=== PATIENT | male | born 1950 | race Caucasian/White ===

== ENCOUNTER 2017-06-24 19:04 | Inpatient (IN) | payer MEDICAID, MEDICARE, OTHER ==
[~2017-06-24] VITALS: Ht 188 cm; Wt 100.0 kg
[~2017-06-24 19:04] MED LIST: ADV50250 INH; ALBU8.5H8 IH; ATOR20TA66 PO; CARV3.12 PO; FURO-150 PO; LEVO175T2 PO; LOSA50TA3 PO; PARO12.52 PO; POTA10TA36 PO; VIT1CAPS4 PO
[2017-06-24 19:28] LABS: BASOPHILS # (AUTO) 0.1 X10'3 (0-0.2); BASOPHILS % (AUTO) 0.7 % (0-1); EOSINOPHILS # (AUTO) 0.4 X10'3 (0-0.9); EOSINOPHILS % (AUTO) 5.6 % (0-6); HEMATOCRIT 41.2 % (42.0-52.0); LYMPHOCYTES # (AUTO) 1.5 X10'3 (1.1-4.8); LYMPHOCYTES % (AUTO) 18.8 % (21-51); MEAN CORPUSCULAR HEMOGLOBIN 30.5 PG (27.0-31.0); MEAN CORPUSCULAR VOLUME 89.8 FL (78-98); MEAN PLATELET VOLUME 9.1 FL (7.4-10.4); MONOCYTES # (AUTO) 0.7 X10'3 (0-0.9); MONOCYTES % (AUTO) 9.1 % (2-12); NEUTROPHILS # (AUTO) 5.1 X10'3 (1.8-7.7); NEUTROPHILS % (AUTO) 65.8 % (42-75); PLATELET COUNT 205 X10'3 (140-440); RED BLOOD COUNT 4.59 X10'6 (4.70-6.10); RED CELL DISTRIBUTION WIDTH 14.6 % (11.5-14.5); WHITE BLOOD COUNT 7.8 X10'3 (4.5-11.0)
[2017-06-24 19:39] LABS: PARTIAL THROMBOPLASTIN TIME 28 SECONDS (22-32); PROTHROMBIN TIME 10.3 SECONDS (9.0-12.0)
[2017-06-24 19:54] LABS: ALANINE AMINOTRANSFERASE 17 U/L (12-78); ALBUMIN 3.3 G/DL (3.4-5.0); ALBUMIN/GLOBULIN RATIO 0.9 (1.1-1.5); ALKALINE PHOSPHATASE 116 IU/L (46-116); ANION GAP 7 (8-16); ASPARTATE AMINO TRANSFERASE 14 U/L (10-37); BILIRUBIN,TOTAL 1.2 MG/DL (0.1-1.0); BLOOD UREA NITROGEN 11 MG/DL (7-18); BUN/CREATININE RATIO 7.3 (5.4-32.0); CALCIUM 9.2 MG/DL (8.5-10.1); CHLORIDE 104 MMOL/L (99-107); CREATINE KINASE 30 U/L (39-308); GLUCOSE 96 MG/DL (70-104); MAGNESIUM 1.8 MG/DL (1.5-2.4); PHOSPHORUS 3.4 MG/DL (2.3-4.5); POTASSIUM 3.7 MMOL/L (3.5-5.1); SODIUM 141 MMOL/L (135-145); TOTAL CARBON DIOXIDE 30.3 MMOL/L (24-32); TOTAL PROTEIN 7.1 G/DL (6.4-8.2); eGFR 47 ML/MIN
[2017-06-24] MEDS ORDERED: LEVO175T2 PO (20:33)
[2017-06-24] MEDS ORDERED: COLC0.6C3 PO (20:33)
[2017-06-24] MEDS ORDERED: ALLO100T PO (20:33)
[2017-06-24] MEDS ORDERED: SYN0.088T PO (20:33)
[2017-06-24] MEDS ORDERED: CARV-50 PO (20:33)
[2017-06-24] MEDS ORDERED: FAMO20TA8 PO (20:36)
[2017-06-24] MEDS ORDERED: ASPI-1265 PO (20:36)
[2017-06-24] MEDS ORDERED: KRIL1CAP PO (20:36)
[2017-06-24] MEDS ORDERED: CHOL200012 (20:36)
[2017-06-24] MEDS ORDERED: morphine 4 MG/ML inj SYRINge IV ONE (20:55)
[2017-06-24] MEDS ORDERED: morphine 5 MG/ML injection IV ONE ×2 (20:55)
[2017-06-24] MEDS ORDERED: temazepam 15mg capsule PO PRN (21:00)
[2017-06-24] MEDS ORDERED: magnesium 2GM in 50ml NS 50 ML IV ONE (21:05)
[2017-06-24] MEDS ORDERED: normal saline 1000ML IV soln IVB ONE (21:25)
[2017-06-24] MEDS ORDERED: morphine 2 MG/ML inj. syringe IV PRN ×2 (23:15)
[2017-06-24] MEDS ORDERED: potassium Cl 40MEQ/NS 500ml 500 ML IV PRN ×2 (23:15)
[2017-06-24] MEDS ORDERED: mag hydrox/Alum hydrox/simeth 30ml oral suspension PO PRN (23:15)
[2017-06-24] MEDS ORDERED: magnesium 4gm in 100ml NS 100 ML IV PRN (23:15)
[2017-06-24] MEDS ORDERED: potassium Cl 20 mEq SR tablet PO PRN ×2 (23:15)
[2017-06-24] MEDS ORDERED: magnesium hydroxide 30ml (MOM) UD suspension PO PRN (23:15)
[2017-06-24] MEDS ORDERED: magnesium Cl slow-release 64mg tablet PO PRN (23:15)
[2017-06-24] MEDS ORDERED: albuterol 2.5 MG/3 ML nebule NEB PRN (23:15)
[2017-06-24] MEDS ORDERED: acetaminophen 325mg tablet PO PRN (23:15)
[2017-06-24] MEDS ORDERED: ipratropium/albuterol 3ml nebule NEB PRN (23:15)
[2017-06-24] MEDS ORDERED: magnesium 2GM in 50ml NS 50 ML IV PRN (23:15)
[2017-06-24] MEDS ORDERED: ondansetron/PF 4mg/2ml inj IV PRN (23:15)
[2017-06-24 23:33] LABS: CLARITY,URINE CLEAR (Clear); COLOR,URINE AMBER (Yellow); GLUCOSE, URINE NEGATIVE (Neg); KETONES,URINE TRACE mg/dl (Neg); LEUKOCYTE ESTERASE ,URINE NEGATIVE (Neg); NITRITES, URINE NEGATIVE (Neg); OCCULT BLOOD,URINE TRACE-INTACT (Neg); PROTEIN,URINE TRACE mg/dl (Neg); UROBILINOGEN,URINE >=8.0 E.U/dL (0.2-1.0)
[2017-06-24 23:36] LABS: UA COLLECTION TYPE CLN CATCH MIDSTREAM
[2017-06-24 23:41] LABS: BACTERIA,URINE NONE SEEN /HPF (Neg); MUCUS STRANDS MANY /LPF (Neg); SQUAMOUS EPITHELIAL CELL,UR FEW /LPF (FEW); WBC,URINE 0-4 /HPF (0-4)
[2017-06-24 23:49] LABS: URINE AMPHETAMINE SCREEN POSITIVE (Neg); URINE BARBITUATE SCREEN NEGATIVE (Neg); URINE BENZODIAZEPINES SCREEN NEGATIVE (Neg); URINE CANNABINOID SCREEN NEGATIVE (Neg); URINE COCAINE SCREEN NEGATIVE (Neg); URINE METHADONE SCREEN NEGATIVE (Neg); URINE OPIATE SCREEN POSITIVE (Neg); URINE PHENCYCLIDINE SCREEN NEGATIVE (Neg)
[2017-06-24] MEDS ORDERED: LIDOCAINE 1% ONE (23:54)
[2017-06-25] VITALS (16 sets, daily range): BP systolic 117–144; BP diastolic 49–84
[2017-06-25] MEDS ORDERED: fentaNYL/PF 50MCG/1 ML 2ML syringe ONE (00:20)
[2017-06-25] MEDS ORDERED: midazolam 2 mg/2 ml injection ONE ×3 (00:21→01:39)
[2017-06-25] MEDS ORDERED: sevoflurane 250ml liquid IH ONE (00:33)
[2017-06-25] MEDS ORDERED: clindamycin phosphate 150mg/ml inj. ONE (00:40)
[2017-06-25] MEDS ORDERED: ringers solution, lacted 1,000 ML IV SCH (02:03)
[2017-06-25] MEDS ORDERED: proCHLORperazine 10 MG/2 ml inj IV PRN (02:05)
[2017-06-25] MEDS ORDERED: morphine 2 MG/ML inj. syringe IV PRN ×2 (02:05)
[2017-06-25] MEDS ORDERED: meperidine/PF 25mg/ml syringe IV PRN ×3 (02:05)
[2017-06-25] MEDS ORDERED: ondansetron/PF 4mg/2ml inj IV PRN (02:05)
[2017-06-25] MEDS: normal saline 1000ml 1,000 ML IV SCH ×2 (04:37→12:34)
[2017-06-25 04:59] LABS: BASOPHILS % (AUTO) 0.7 % (0-1); EOSINOPHILS # (AUTO) 0.4 X10'3 (0-0.9); EOSINOPHILS % (AUTO) 5.9 % (0-6); HEMATOCRIT 36.4 % (42.0-52.0); HEMOGLOBIN 12.4 g/dl (14.0-17.9); LYMPHOCYTES # (AUTO) 1.3 X10'3 (1.1-4.8); LYMPHOCYTES % (AUTO) 20.3 % (21-51); MEAN CORPUSCULAR HEMOGLOBIN 30.4 PG (27.0-31.0); MEAN CORPUSCULAR VOLUME 89.5 FL (78-98); MEAN PLATELET VOLUME 9.3 FL (7.4-10.4); MONOCYTES # (AUTO) 0.7 X10'3 (0-0.9); MONOCYTES % (AUTO) 11.1 % (2-12); NEUTROPHILS # (AUTO) 4.1 X10'3 (1.8-7.7); PLATELET COUNT 172 X10'3 (140-440); RED BLOOD COUNT 4.07 X10'6 (4.70-6.10); RED CELL DISTRIBUTION WIDTH 14.6 % (11.5-14.5); WHITE BLOOD COUNT 6.6 X10'3 (4.5-11.0)
[2017-06-25 05:20] LABS: ALANINE AMINOTRANSFERASE 17 U/L (12-78); ALBUMIN 2.8 G/DL (3.4-5.0); ALBUMIN/GLOBULIN RATIO 0.8 (1.1-1.5); ALKALINE PHOSPHATASE 103 IU/L (46-116); ANION GAP 7 (8-16); ASPARTATE AMINO TRANSFERASE 13 U/L (10-37); BILIRUBIN,TOTAL 1.2 MG/DL (0.1-1.0); BLOOD UREA NITROGEN 11 MG/DL (7-18); BUN/CREATININE RATIO 7.9 (5.4-32.0); CALCIUM 8.3 MG/DL (8.5-10.1); CHLORIDE 105 MMOL/L (99-107); CHOL/HDL RATIO 4.9 (0.00-4.99); CHOLESTEROL 127 MG/DL (0-200); GLUCOSE 82 MG/DL (70-104); HDL CHOLESTEROL 26 MG/DL (35-60); LDL CHOLESTEROL 81 MG/DL (50-100); POTASSIUM 3.9 MMOL/L (3.5-5.1); SODIUM 141 MMOL/L (135-145); TOTAL CARBON DIOXIDE 28.6 MMOL/L (24-32); TOTAL PROTEIN 6.2 G/DL (6.4-8.2); TRIGLYCERIDES 126 MG/DL (20-135); eGFR 51 ML/MIN
[2017-06-25] MEDS ORDERED: aspirin 81mg tab.chew PO SCH (08:00)
[2017-06-25] MEDS ORDERED: potassium chloride 10mEq ER tablet PO SCH (08:00)
[2017-06-25] MEDS ORDERED: famotidine 20mg tablet PO SCH (08:00)
[2017-06-25] MEDS ORDERED: losartan 50mg tablet PO SCH (08:00)
[2017-06-25] MEDS ORDERED: K and/or MAG REPLACEMENT MC SCH (08:00)
[2017-06-25] MEDS ORDERED: allopurinol 100mg tablet PO SCH (08:00)
[2017-06-25] MEDS ORDERED: furosemide 20MG tablet PO SCH (08:00)
[2017-06-25] MEDS: HYDROcodone/acetaminophen 5mg/325mg tablet PO PRN ×2 (10:21→15:59)
[2017-06-25] MEDS ORDERED: HYDR-569 PO (11:02)
[2017-06-25] MEDS ORDERED: LEVO125T8 PO (11:02)
[2017-06-25] MEDS ORDERED: atorvastatin 20mg tablet PO SCH (21:00)
== END 2017-06-25 17:36 | disposition home or self-care (01) | DRG 243 ==
LOC: ER 19:04 → ED HOLD 23:19 → PCU 3S 06-25 02:55
PROVIDERS: ADMIT Internal Medicine; ATTEND Internal Medicine
PROC: 02H63JZ Insertion of Pacemaker Lead into Right Atrium, Percutaneous Approach (ICD-10-PCS; 2017-06-25)
PROC: 02HK3JZ Insertion of Pacemaker Lead into Right Ventricle, Percutaneous Approach (ICD-10-PCS; 2017-06-25)
PROC: 0JH606Z Insertion of Pacemaker, Dual Chamber into Chest Subcutaneous Tissue and Fascia, Open Approach (ICD-10-PCS; principal; 2017-06-25 00:33)
DX: I44.2 Atrioventricular block, complete (principal); I42.8 Other cardiomyopathies; I13.0 Hypertensive heart and chronic kidney disease with heart failure and stage 1 through stage 4 chronic kidney disease, or unspecified chronic kidney disease; I50.22 Chronic systolic (congestive) heart failure; R07.89 Other chest pain; E03.9 Hypothyroidism, unspecified; E78.5 Hyperlipidemia, unspecified; N18.3 Chronic kidney disease, stage 3 (moderate); F41.9 Anxiety disorder, unspecified; J44.9 Chronic obstructive pulmonary disease, unspecified; M10.9 Gout, unspecified; N28.9 Disorder of kidney and ureter, unspecified; E05.90 Thyrotoxicosis, unspecified without thyrotoxic crisis or storm; F15.10 Other stimulant abuse, uncomplicated; F12.90 Cannabis use, unspecified, uncomplicated; F17.210 Nicotine dependence, cigarettes, uncomplicated; Z88.0 Allergy status to penicillin
CPT/HCPCS: 36415; 71045; 76000; 76001; 80053; 80061; 80305; 81001; 82550; 82553; 83735; 83874; 83880; 84100; 84443; 84484; 85025; 85610; 85730; 87070; 93005; 93306; 94640; 94760; 96361; 96365; 96375; 99291; A4565; A4615; A6257; A7000; C1785; J2175; J2250; J3010; J3475; J3490; J7030; J7120

== ENCOUNTER 2017-07-02 04:38 | Emergency (ER) | payer MEDICARE, OTHER ==
[~2017-07-02] VITALS: Ht 188 cm; Wt 97.7 kg
[~2017-07-02 04:38] MED LIST changes: -ADV50250 INH; -ALBU8.5H8 IH; +ALLO100T PO; +ASPI-1265 PO; -CARV3.12 PO; +CHOL200012; +FAMO20TA8 PO; +HYDR-569 PO; +LEVO125T8 PO; -LEVO175T2 PO
[2017-07-02] MEDS ORDERED: metoclopramide 5 mg/ml inj IM ONE ×2 (05:00→05:25)
[2017-07-02] MEDS ORDERED: diphenhydrAMINE 50 mg/ml inj IM ONE (05:00)
[2017-07-02 05:50] VITALS: BP 145/101
== END 2017-07-02 05:53 | disposition home or self-care (01) ==
LOC: ER 04:39
DX: R51 Headache (principal); I11.0 Hypertensive heart disease with heart failure; I50.9 Heart failure, unspecified; E05.90 Thyrotoxicosis, unspecified without thyrotoxic crisis or storm; F12.90 Cannabis use, unspecified, uncomplicated; F15.90 Other stimulant use, unspecified, uncomplicated; Z95.0 Presence of cardiac pacemaker; Z88.0 Allergy status to penicillin; Z98.890 Other specified postprocedural states; Z79.82 Long term (current) use of aspirin
CPT/HCPCS: 70450; 96372; 99284; J1200; J2765

== ENCOUNTER 2017-10-08 11:36 | Emergency (ER) | payer MEDICARE, OTHER ==
[~2017-10-08] VITALS: Ht 6206.4 cm; Wt 96.0 kg
[2017-10-08] MEDS ORDERED: methylPREDNISolone sod succ 125mg/2ml vial IV ONE (11:45)
[2017-10-08] MEDS ORDERED: CARV-50 PO (11:53)
[2017-10-08] MEDS ORDERED: COLC0.6T69 PO (11:53)
[2017-10-08 12:16] LABS: BASOPHILS % (AUTO) 0.6 % (0-1); EOSINOPHILS # (AUTO) 0.5 X10'3 (0-0.9); EOSINOPHILS % (AUTO) 10.2 % (0-6); HEMATOCRIT 38.8 % (42.0-52.0); HEMOGLOBIN 13.1 g/dl (14.0-17.9); LYMPHOCYTES # (AUTO) 1.3 X10'3 (1.1-4.8); LYMPHOCYTES % (AUTO) 27.9 % (21-51); MEAN CORPUSCULAR HEMOGLOBIN 29.8 PG (27.0-31.0); MEAN CORPUSCULAR HGB CONC 33.8 % (33.0-36.5); MEAN PLATELET VOLUME 8.6 FL (7.4-10.4); MONOCYTES # (AUTO) 0.5 X10'3 (0-0.9); MONOCYTES % (AUTO) 9.8 % (2-12); NEUTROPHILS # (AUTO) 2.4 X10'3 (1.8-7.7); NEUTROPHILS % (AUTO) 51.5 % (42-75); PLATELET COUNT 200 X10'3 (140-440); RED BLOOD COUNT 4.41 X10'6 (4.70-6.10); RED CELL DISTRIBUTION WIDTH 14.1 % (11.5-14.5); WHITE BLOOD COUNT 4.7 X10'3 (4.5-11.0)
[2017-10-08 12:35] LABS: ALANINE AMINOTRANSFERASE 24 U/L (12-78); ALBUMIN 3.1 G/DL (3.4-5.0); ALBUMIN/GLOBULIN RATIO 0.8 (1.1-1.5); ALKALINE PHOSPHATASE 115 IU/L (46-116); ANION GAP 4 (8-16); ASPARTATE AMINO TRANSFERASE 22 U/L (10-37); BILIRUBIN,TOTAL 0.5 MG/DL (0.1-1.0); BLOOD UREA NITROGEN 7 MG/DL (7-18); BUN/CREATININE RATIO 5.5 (5.4-32.0); CALCIUM 8.2 MG/DL (8.5-10.1); CHLORIDE 107 MMOL/L (99-107); CREATININE 1.27 MG/DL (0.60-1.10); GLUCOSE 112 MG/DL (70-104); POTASSIUM 3.2 MMOL/L (3.5-5.1); SODIUM 143 MMOL/L (135-145); TOTAL CARBON DIOXIDE 31.8 MMOL/L (24-32); TOTAL PROTEIN 6.9 G/DL (6.4-8.2); eGFR 57 ML/MIN
[2017-10-08] MEDS ORDERED: ipratropium/albuterol 3ml nebule NEB ONE (12:55)
[2017-10-08] MEDS ORDERED: albuterol 2.5 MG/3 ML nebule NEB ONE (12:55)
[2017-10-08 13:27] VITALS: BP 134/80
[2017-10-08] MEDS ORDERED: CIPR-230 PO (13:54)
[2017-10-08] MEDS ORDERED: PRED20TA PO (13:54)
== END 2017-10-08 14:15 | disposition home or self-care (01) ==
LOC: ER 11:36
DX: J44.1 Chronic obstructive pulmonary disease with (acute) exacerbation (principal); I11.0 Hypertensive heart disease with heart failure; I50.9 Heart failure, unspecified; E05.90 Thyrotoxicosis, unspecified without thyrotoxic crisis or storm; F17.200 Nicotine dependence, unspecified, uncomplicated; F12.10 Cannabis abuse, uncomplicated; F15.10 Other stimulant abuse, uncomplicated; Z95.0 Presence of cardiac pacemaker; Z98.890 Other specified postprocedural states; Z88.0 Allergy status to penicillin; Z79.82 Long term (current) use of aspirin; Z79.899 Other long term (current) drug therapy
CPT/HCPCS: 36415; 71045; 80053; 83880; 84484; 85025; 93005; 94640; 94760; 96374; 99285; J2930

== ENCOUNTER 2020-12-01 12:01 | Emergency (ER) | payer MEDICARE, OTHER ==
[~2020-12-01] VITALS: Ht 188 cm; Wt 97.7 kg
[~2020-12-01 12:01] MED LIST changes: +CARV-50 PO; +COLC0.6T72 PO; +HYDR-4383 PO; -HYDR-569 PO; -PARO12.52 PO; +PARO12.53 PO
[2020-12-01] MEDS ORDERED: normal saline 1000ml 1,000 ML IV ONE (13:10)
[2020-12-01 13:25] LABS: BASOPHILS # (AUTO) 0.1 X10'3 (0-0.2); BASOPHILS % (AUTO) 1.2 % (0-1); EOSINOPHILS # (AUTO) 0.3 X10'3 (0-0.9); EOSINOPHILS % (AUTO) 4.3 % (0-6); HEMATOCRIT 45.8 % (42.0-52.0); HEMOGLOBIN 15.3 g/dl (14.0-17.9); LYMPHOCYTES % (AUTO) 15.7 % (21-51); MEAN CORPUSCULAR HEMOGLOBIN 30.7 PG (27.0-31.0); MEAN CORPUSCULAR HGB CONC 33.5 g/dL (33.0-36.5); MEAN CORPUSCULAR VOLUME 91.5 FL (78-98); MEAN PLATELET VOLUME 8.4 FL (7.4-10.4); MONOCYTES # (AUTO) 0.6 X10'3 (0-0.9); MONOCYTES % (AUTO) 8.9 % (2-12); NEUTROPHILS # (AUTO) 4.5 X10'3 (1.8-7.7); NEUTROPHILS % (AUTO) 69.9 % (42-75); PLATELET COUNT 300 X10'3 (140-440); RED CELL DISTRIBUTION WIDTH 15.3 % (11.5-14.5); WHITE BLOOD COUNT 6.4 X10'3 (4.5-11.0)
[2020-12-01 13:38] LABS: ALANINE AMINOTRANSFERASE 15 U/L (12-78); ALBUMIN 3.4 G/DL (3.4-5.0); ALBUMIN/GLOBULIN RATIO 0.8 (1.1-1.5); ALKALINE PHOSPHATASE 101 IU/L (46-116); ANION GAP 9 (8-16); ASPARTATE AMINO TRANSFERASE 18 U/L (10-37); BILIRUBIN,TOTAL 1.9 MG/DL (0.1-1.0); BLOOD UREA NITROGEN 8 MG/DL (7-18); BUN/CREATININE RATIO 7.3 (5.4-32.0); CALCIUM 8.8 MG/DL (8.5-10.1); CHLORIDE 105 MMOL/L (99-107); GLUCOSE 114 MG/DL (70-104); POTASSIUM 4.1 MMOL/L (3.5-5.1); SODIUM 141 MMOL/L (135-145); TOTAL PROTEIN 7.5 G/DL (6.4-8.2); eGFR 66 ML/MIN
--- NOTE | 2020-12-01 14:05 | NUR ---
ines [id number] [phone] will call her and give her updates
[2020-12-01 15:16] LABS: CLARITY,URINE CLEAR (Clear); COLOR,URINE STRAW (Yellow); GLUCOSE, URINE NEGATIVE (Neg); KETONES,URINE NEGATIVE (Neg); LEUKOCYTE ESTERASE ,URINE NEGATIVE (Neg); NITRITES, URINE NEGATIVE (Neg); OCCULT BLOOD,URINE NEGATIVE (Neg); PH,URINE 7.5 (4.8-8.0); PROTEIN,URINE NEGATIVE (Neg); UA COLLECTION TYPE CLN CATCH MIDSTREAM
[2020-12-01 15:18] VITALS: BP 166/100
[2020-12-01 15:22] LABS: URINE AMPHETAMINE SCREEN NEGATIVE (Neg); URINE BARBITUATE SCREEN NEGATIVE (Neg); URINE BENZODIAZEPINES SCREEN NEGATIVE (Neg); URINE CANNABINOID SCREEN NEGATIVE (Neg); URINE COCAINE SCREEN NEGATIVE (Neg); URINE METHADONE SCREEN NEGATIVE (Neg); URINE OPIATE SCREEN NEGATIVE (Neg); URINE PHENCYCLIDINE SCREEN NEGATIVE (Neg)
== END 2020-12-01 15:20 | disposition home or self-care (01) ==
LOC: ER 12:02
DX: R53.1 Weakness (principal); I50.9 Heart failure, unspecified; I11.0 Hypertensive heart disease with heart failure; R53.83 Other fatigue; R06.02 Shortness of breath; J44.9 Chronic obstructive pulmonary disease, unspecified; M10.9 Gout, unspecified; E05.90 Thyrotoxicosis, unspecified without thyrotoxic crisis or storm; F12.90 Cannabis use, unspecified, uncomplicated; F15.90 Other stimulant use, unspecified, uncomplicated; Z95.0 Presence of cardiac pacemaker; Z98.890 Other specified postprocedural states; Z88.0 Allergy status to penicillin; Z79.82 Long term (current) use of aspirin; Z79.899 Other long term (current) drug therapy
CPT/HCPCS: 36415; 71045; 80053; 80305; 81003; 83880; 85025; 93005; 96360; 96361; 99285; J7030; 84484

== ENCOUNTER 2024-03-05 09:06 | Outpatient (CLI) | payer BC, MEDICARE ==
[~2024-03-05] VITALS: Ht 188 cm; Wt 90.3 kg
[~2024-03-05 09:06] MED LIST changes: +ALBU17AE26 IH; -ASPI-1265 PO; +ASPI-611 PO; -ATOR20TA66 PO; +ATOR40TA72 PO; -CARV-50 PO; +CARV6.2553 PO; -CHOL200012; +CHOL200012 PO; -COLC0.6T72 PO; -FAMO20TA8 PO; +FERR325T32 PO; -FURO-150 PO; +FURO20TA4 PO; -HYDR-4383 PO; +LOSA-416 PO; -LOSA50TA3 PO; +PANT40TA54 PO; +PARO10TA4 PO; -PARO12.53 PO; -POTA10TA36 PO
[2024-03-05] MEDS ORDERED: aminophylline 250mg/10ml inj. IV ONE (10:00)
[2024-03-05 10:02] VITALS: BP 138/76; PULSE 101; RESP 14; O2SAT 98
[2024-03-05] MEDS: regadenoson 0.4mg/5ml syringe IV ONE (11:12)
[2024-03-05 11:24] VITALS: BP 120/70; PULSE 100; RESP 16; O2SAT 98
[2024-03-05 11:25] VITALS: BP 131/73; PULSE 102; RESP 16; O2SAT 99
[2024-03-05 11:26] VITALS: BP 135/67; PULSE 100; RESP 16; O2SAT 99
[2024-03-05 11:27] VITALS: BP 133/67; PULSE 100; RESP 14; O2SAT 98
[2024-03-05 11:28] VITALS: BP 134/72; PULSE 101; RESP 14; O2SAT 99
[2024-04-12] MEDS ORDERED: CEFU250T95 PO (07:24)
== END 2024-03-05 23:59 | disposition home or self-care (01) ==
LOC: NM 09:06
PROVIDERS: ATTEND Internal Medicine Cardiovascular Disease
DX: Z01.818 Encounter for other preprocedural examination (principal); I50.22 Chronic systolic (congestive) heart failure; I25.10 Atherosclerotic heart disease of native coronary artery without angina pectoris
CPT/HCPCS: 78452; 93017; A9500; J2785; J0280

== ENCOUNTER 2024-04-08 23:59 | Emergency (ER) | payer BC, MEDICARE ==
[~2024-04-08] VITALS: Ht 177.8 cm; Wt 90.9 kg
[2024-04-09] MEDS: diatr meglu/diatrizoate 30ml oral sol.-(3 dose) bottle PO SCH (00:19)
[2024-04-09 00:36] LABS: BASOPHILS # (AUTO) 0.1 X10'3 (0-0.2); BASOPHILS % (AUTO) 0.4 % (0-1); EOSINOPHILS # (AUTO) 0.1 X10'3 (0-0.9); EOSINOPHILS % (AUTO) 1.1 % (0-6); HEMATOCRIT 33.1 % (42.0-52.0); HEMOGLOBIN 10.3 g/dl (14.0-17.9); LYMPHOCYTES % (AUTO) 7.3 % (21-51); MEAN CORPUSCULAR HEMOGLOBIN 23.9 PG (27.0-31.0); MEAN PLATELET VOLUME 8.4 FL (7.4-10.4); MONOCYTES # (AUTO) 1.2 X10'3 (0-0.9); MONOCYTES % (AUTO) 8.6 % (2-12); NEUTROPHILS # (AUTO) 11.2 X10'3 (1.8-7.7); NEUTROPHILS % (AUTO) 82.6 % (42-75); PLATELET COUNT 221 X10'3 (140-440); RED CELL DISTRIBUTION WIDTH 19.8 % (11.5-14.5); WHITE BLOOD COUNT 13.6 X10'3 (4.5-11.0)
[2024-04-09 00:48] LABS: ALANINE AMINOTRANSFERASE 43 U/L (12-78); ALBUMIN 3.1 G/DL (3.4-5.0); ALBUMIN/GLOBULIN RATIO 0.7 (1.1-1.5); ALKALINE PHOSPHATASE 139 IU/L (46-116); ANION GAP 5 (8-16); ASPARTATE AMINO TRANSFERASE 40 U/L (10-37); BILIRUBIN,TOTAL 2.1 MG/DL (0.1-1.0); BLOOD UREA NITROGEN 13 MG/DL (7-18); BUN/CREATININE RATIO 8.2 (10.0-20.0); CALCIUM 8.8 MG/DL (8.5-10.1); CHLORIDE 101 MMOL/L (99-107); CREATININE 1.59 MG/DL (0.60-1.10); GLUCOSE 99 MG/DL (70-104); POTASSIUM 3.9 MMOL/L (3.5-5.1); SODIUM 136 MMOL/L (135-145); TOTAL CARBON DIOXIDE 29.6 MMOL/L (24-32); TOTAL PROTEIN 7.4 G/DL (6.4-8.2); eCRCL 43 ML/MIN; eGFR 43 ML/MIN
[2024-04-09 00:56] LABS: ANISOCYTOSIS 2+; ELLIPTOCYTES 1+; MICROCYTOSIS 1+; PLATELET ESTIMATE NORMAL
[2024-04-09] MEDS ORDERED: iohexol 300mg/ml 100ml inj. ONE (01:17)
[2024-04-09 04:22] LABS: BILIRUBIN,URINE NEGATIVE (Neg); CLARITY,URINE SLIGHTLY CLOUDY (Clear); COLOR,URINE YELLOW (Yellow); GLUCOSE, URINE NEGATIVE (Neg); KETONES,URINE NEGATIVE (Neg); LEUKOCYTE ESTERASE ,URINE TRACE (Neg); NITRITES, URINE POSITIVE (Neg); OCCULT BLOOD,URINE TRACE-INTACT (Neg); PH,URINE 7.5 (4.8-8.0); PROTEIN,URINE NEGATIVE (Neg); UROBILINOGEN,URINE 0.2 E.U/dL (0.2-1.0)
[2024-04-09 04:26] LABS: UA COLLECTION TYPE OTHER
[2024-04-09 04:27] LABS: SQUAMOUS EPITHELIAL CELL,UR NONE SEEN /LPF (FEW)
[2024-04-09 04:28] LABS: BACTERIA,URINE 3+ /HPF (Neg); TRANSITIONAL EPI CELLS,URINE FEW /HPF
[2024-04-09 04:29] LABS: MUCUS STRANDS NONE SEEN /LPF (Neg); RBC,URINE 0-2 /HPF (0-2)
[2024-04-09 04:42] LABS: URINE AMPHETAMINE SCREEN POSITIVE (Neg); URINE BARBITUATE SCREEN NEGATIVE (Neg); URINE BENZODIAZEPINES SCREEN NEGATIVE (Neg); URINE CANNABINOID SCREEN NEGATIVE (Neg); URINE COCAINE SCREEN NEGATIVE (Neg); URINE METHADONE SCREEN NEGATIVE (Neg); URINE OPIATE SCREEN NEGATIVE (Neg); URINE PHENCYCLIDINE SCREEN NEGATIVE (Neg)
[2024-04-09 04:52] VITALS: BP 132/80; PULSE 95; RESP 18; TEMP 98; O2SAT 96
== END 2024-04-09 04:56 | disposition home or self-care (01) ==
LOC: ER 23:59
DX: K40.90 Unilateral inguinal hernia, without obstruction or gangrene, not specified as recurrent (principal); I11.0 Hypertensive heart disease with heart failure; I50.9 Heart failure, unspecified; J44.9 Chronic obstructive pulmonary disease, unspecified; E05.90 Thyrotoxicosis, unspecified without thyrotoxic crisis or storm; F12.90 Cannabis use, unspecified, uncomplicated; F15.90 Other stimulant use, unspecified, uncomplicated; Z95.0 Presence of cardiac pacemaker; Z98.890 Other specified postprocedural states; Z88.0 Allergy status to penicillin; Z79.82 Long term (current) use of aspirin; Z79.899 Other long term (current) drug therapy
CPT/HCPCS: 36415; 74177; 80053; 80305; 81001; 83605; 85008; 85025; 87088; 87186; 99285; Q9963; Q9967; 87077

== ENCOUNTER 2024-06-12 18:24 | Inpatient (IN) | payer BC, MEDICARE ==
[~2024-06-12] VITALS: Ht 175.3 cm; Wt 81.8 kg
[2024-06-12 19:38] LABS: BASOPHILS # (AUTO) 0.1 X10'3 (0-0.2); EOSINOPHILS # (AUTO) 0.2 X10'3 (0-0.9); EOSINOPHILS % (AUTO) 4.1 % (0-6); HEMATOCRIT 32.4 % (42.0-52.0); HEMOGLOBIN 10.6 g/dl (14.0-17.9); LYMPHOCYTES # (AUTO) 1.1 X10'3 (1.1-4.8); LYMPHOCYTES % (AUTO) 19.5 % (21-51); MEAN CORPUSCULAR HEMOGLOBIN 24.9 PG (27.0-31.0); MEAN CORPUSCULAR HGB CONC 32.7 g/dL (33.0-36.5); MEAN CORPUSCULAR VOLUME 76.2 FL (78-98); MEAN PLATELET VOLUME 8.6 FL (7.4-10.4); MONOCYTES # (AUTO) 0.7 X10'3 (0-0.9); MONOCYTES % (AUTO) 12.4 % (2-12); NEUTROPHILS # (AUTO) 3.4 X10'3 (1.8-7.7); PLATELET COUNT 214 X10'3 (140-440); RED BLOOD COUNT 4.25 X10'6 (4.70-6.10); RED CELL DISTRIBUTION WIDTH 17.8 % (11.5-14.5); WHITE BLOOD COUNT 5.4 X10'3 (4.5-11.0)
[2024-06-12 19:55] LABS: ALANINE AMINOTRANSFERASE 20 U/L (12-78); ALBUMIN/GLOBULIN RATIO 0.9 (1.1-1.5); ALKALINE PHOSPHATASE 114 IU/L (46-116); ANION GAP 7 (8-16); ASPARTATE AMINO TRANSFERASE 17 U/L (10-37); BILIRUBIN,TOTAL 0.8 MG/DL (0.1-1.0); BLOOD UREA NITROGEN 10 MG/DL (7-18); BUN/CREATININE RATIO 8.5 (10.0-20.0); CALCIUM 8.3 MG/DL (8.5-10.1); CHLORIDE 108 MMOL/L (99-107); CREATININE 1.17 MG/DL (0.60-1.10); GLUCOSE 92 MG/DL (70-104); POTASSIUM 4.1 MMOL/L (3.5-5.1); PRO BRAIN NATRIURETIC PEPTIDE 1657 PG/ML (0-125); SODIUM 141 MMOL/L (135-145); TOTAL CARBON DIOXIDE 26.5 MMOL/L (24-32); TOTAL PROTEIN 6.5 G/DL (6.4-8.2); eCRCL 56 ML/MIN; eGFR 61 ML/MIN
[2024-06-12] MEDS ORDERED: magnesium Cl slow-release 64mg tablet PO PRN (21:40)
[2024-06-12] MEDS ORDERED: magnesium sulf-water 2g/50mL 50 ML IV PRN (21:40)
[2024-06-12] MEDS ORDERED: magnesium sulf-water 4G/100mL 100 ML IV PRN (21:40)
[2024-06-12] MEDS ORDERED: acetaminophen 325mg tablet PO PRN (21:40)
[2024-06-12] MEDS ORDERED: HYDROcodone/acetaminophen 5mg/325mg tablet PO PRN (21:40)
[2024-06-12] MEDS ORDERED: potassium Cl 20 mEq SR tablet PO PRN ×2 (21:40)
[2024-06-12] MEDS ORDERED: dextrose 50%-water 50ml dispensing syringe IV PRN (21:40)
[2024-06-12] MEDS ORDERED: morphine 2 MG/ML inj. syringe IV PRN (21:40)
[2024-06-12] MEDS ORDERED: ondansetron/PF 4mg/2ml inj IV PRN (21:40)
[2024-06-12] MEDS ORDERED: magnesium hydroxide 30ml (MOM) UD suspension PO PRN (21:40)
[2024-06-12] MEDS ORDERED: potassium Cl 40MEQ/1/2NS 520ml 520 ML IV PRN (21:40)
[2024-06-12] MEDS ORDERED: mag hydrox/Alum hydrox/simeth 30ml oral suspension PO PRN (21:40)
[2024-06-12] MEDS: aspirin 325mg tablet PO ONE (22:11)
[2024-06-13] VITALS (18 sets, daily range): BP systolic 97–135; BP diastolic 51–73; PULSE 61–94; RESP 16–20; TEMP 97.6–98.2; O2SAT 67–98
[2024-06-13] MEDS: PERFLUTREN PROTEIN-A MICROSPHR (Optison) 0.22 MG/ML 3ML VIAL IV ONE (00:35)
[2024-06-13] MEDS: furosemide 40mg/4ml inj IV ONE (00:40)
[2024-06-13 01:10] LABS: THYROID STIMULATING HORMONE 0.82 ulU/ml (0.34-4.50)
[2024-06-13] MEDS ORDERED: albuterol 2.5 MG/3 ML nebule NEB PRN ×2 (01:35→03:40)
[2024-06-13 01:58] LABS: BILIRUBIN,URINE NEGATIVE (Neg); CLARITY,URINE CLEAR (Clear); COLOR,URINE YELLOW (Yellow); GLUCOSE, URINE NEGATIVE (Neg); KETONES,URINE NEGATIVE (Neg); LEUKOCYTE ESTERASE ,URINE NEGATIVE (Neg); NITRITES, URINE NEGATIVE (Neg); OCCULT BLOOD,URINE NEGATIVE (Neg); PROTEIN,URINE NEGATIVE (Neg); UROBILINOGEN,URINE 0.2 E.U/dL (0.2-1.0)
[2024-06-13] MEDS: ipratropium/albuterol 3ml nebule NEB SCH (02:00)
[2024-06-13 02:19] LABS: UA COLLECTION TYPE CLN CATCH MIDSTREAM
[2024-06-13 02:22] LABS: OSMOLALITY UA 567 MOSM/K (50-1400)
[2024-06-13 02:52] LABS: SODIUM,URINE RANDOM 109 MEQ/L; URINE AMPHETAMINE SCREEN NEGATIVE (Neg); URINE BARBITUATE SCREEN NEGATIVE (Neg); URINE BENZODIAZEPINES SCREEN NEGATIVE (Neg); URINE CANNABINOID SCREEN NEGATIVE (Neg); URINE COCAINE SCREEN NEGATIVE (Neg); URINE METHADONE SCREEN NEGATIVE (Neg); URINE OPIATE SCREEN NEGATIVE (Neg); URINE PHENCYCLIDINE SCREEN NEGATIVE (Neg)
[2024-06-13 03:21] LABS: BASOPHILS # (AUTO) 0.1 X10'3 (0-0.2); BASOPHILS % (AUTO) 1.2 % (0-1); EOSINOPHILS # (AUTO) 0.2 X10'3 (0-0.9); EOSINOPHILS % (AUTO) 5.4 % (0-6); HEMOGLOBIN 9.8 g/dl (14.0-17.9); LYMPHOCYTES # (AUTO) 1.2 X10'3 (1.1-4.8); LYMPHOCYTES % (AUTO) 27.4 % (21-51); MEAN CORPUSCULAR HEMOGLOBIN 25.1 PG (27.0-31.0); MEAN CORPUSCULAR HGB CONC 32.7 g/dL (33.0-36.5); MEAN CORPUSCULAR VOLUME 76.8 FL (78-98); MEAN PLATELET VOLUME 8.7 FL (7.4-10.4); MONOCYTES # (AUTO) 0.6 X10'3 (0-0.9); MONOCYTES % (AUTO) 14.2 % (2-12); NEUTROPHILS # (AUTO) 2.3 X10'3 (1.8-7.7); NEUTROPHILS % (AUTO) 51.8 % (42-75); PLATELET COUNT 176 X10'3 (140-440); RED BLOOD COUNT 3.91 X10'6 (4.70-6.10); RED CELL DISTRIBUTION WIDTH 17.6 % (11.5-14.5); WHITE BLOOD COUNT 4.5 X10'3 (4.5-11.0)
[2024-06-13 03:33] LABS: ALBUMIN 2.7 G/DL (3.4-5.0); ANION GAP 4 (8-16); BLOOD UREA NITROGEN 10 MG/DL (7-18); BUN/CREATININE RATIO 8.5 (10.0-20.0); CALCIUM 8.5 MG/DL (8.5-10.1); CHLORIDE 109 MMOL/L (99-107); CREATININE 1.17 MG/DL (0.60-1.10); GLUCOSE 96 MG/DL (70-104); MAGNESIUM 1.8 MG/DL (1.5-2.4); SODIUM 142 MMOL/L (135-145); TOTAL CARBON DIOXIDE 29.2 MMOL/L (24-32); eCRCL 56 ML/MIN; eGFR 61 ML/MIN
[2024-06-13] MEDS: docusate sod 100mg capsule PO SCH (08:00)
[2024-06-13] MEDS: K and/or MAG REPLACEMENT MC SCH (08:00)
[2024-06-13] MEDS: folic acid 1mg/0.2ml inj IV SCH (08:33)
[2024-06-13] MEDS: furosemide 20 MG/2 ML vial IV SCH (08:33)
[2024-06-13] MEDS: thiamine 100mg/ml 2ml inj. IV SCH (08:33)
[2024-06-13] MEDS: PARoxetine 10mg tablet PO SCH (08:34)
[2024-06-13] MEDS: allopurinol 100mg tablet PO SCH (08:34)
[2024-06-13] MEDS: aspirin 81mg, enteric-coated 1 TAB TABLET.DR PO SCH (08:34)
[2024-06-13] MEDS: carvedilol 6.25mg tablet PO SCH (08:34)
[2024-06-13 19:18] LABS: HEMOGLOBIN A1C 5.9 % (4.5-6.2)
[2024-06-13 19:45] LABS: CHOL/HDL RATIO 4.8 (0.00-4.99); CHOLESTEROL 159 MG/DL (0-200); FERRITIN 24 NG/ML (26-388); HDL CHOLESTEROL 33 MG/DL (35-60); LDL CHOLESTEROL 108 MG/DL (50-100); TRIGLYCERIDES 71 MG/DL (20-135)
[2024-06-13 19:53] LABS: % IRON SATURATION 5 % (11-46); IRON 17 UG/DL (53-167); TOTAL IRON BINDING CAPACITY 371 UG/DL (259-388)
[2024-06-13] MEDS: atorvastatin 20mg tablet PO SCH (19:57)
[2024-06-14 02:00] VITALS: BP 97/59; PULSE 87; RESP 21; TEMP 97.4; O2SAT 95
[2024-06-14 06:00] VITALS: BP 119/66; PULSE 65; RESP 20; TEMP 97.4; O2SAT 94
[2024-06-14 07:00] LABS: ALBUMIN 2.8 G/DL (3.4-5.0); ANION GAP 7 (8-16); BLOOD UREA NITROGEN 14 MG/DL (7-18); BUN/CREATININE RATIO 9.7 (10.0-20.0); CALCIUM 8.6 MG/DL (8.5-10.1); CHLORIDE 103 MMOL/L (99-107); CREATININE 1.44 MG/DL (0.60-1.10); GLUCOSE 95 MG/DL (70-104); MAGNESIUM 1.7 MG/DL (1.5-2.4); POTASSIUM 3.9 MMOL/L (3.5-5.1); SODIUM 139 MMOL/L (135-145); eCRCL 46 ML/MIN; eGFR 48 ML/MIN
[2024-06-14 07:36] LABS: EOSINOPHILS # (AUTO) 0.2 X10'3 (0-0.9); HEMATOCRIT 31.6 % (42.0-52.0); MONOCYTES # (AUTO) 0.6 X10'3 (0-0.9); NEUTROPHILS # (AUTO) 2.6 X10'3 (1.8-7.7); WHITE BLOOD COUNT 4.5 X10'3 (4.5-11.0)
[2024-06-14 07:38] LABS: HEMOGLOBIN 10.2 g/dl (14.0-17.9); LYMPHOCYTES % (AUTO) 22.9 % (21-51); MEAN CORPUSCULAR HEMOGLOBIN 24.9 PG (27.0-31.0); MEAN CORPUSCULAR HGB CONC 32.4 g/dL (33.0-36.5); MEAN CORPUSCULAR VOLUME 76.7 FL (78-98); PLATELET COUNT 208 X10'3 (140-440); RED BLOOD COUNT 4.11 X10'6 (4.70-6.10); RED CELL DISTRIBUTION WIDTH 17.5 % (11.5-14.5)
[2024-06-14 07:39] LABS: EOSINOPHILS % (AUTO) 5.1 % (0-6)
[2024-06-14 07:58] LABS: ANISOCYTOSIS 1+; HYPOCHROMASIA 1+; PLATELET ESTIMATE NORMAL; TOTAL CELLS COUNTED 100
[2024-06-14 07:59] LABS: ELLIPTOCYTES 1+; MICROCYTOSIS 1+; SPHEROCYTES 1+
[2024-06-14 08:00] VITALS: RESP 20; O2SAT 94
[2024-06-14 08:01] LABS: GIANT PLATELET FEW
[2024-06-14] MEDS ORDERED: iron sucrose complex injection 100 MG in normal saline 100ml IV soln 95 ML IV SCH (08:05)
[2024-06-14] MEDS: furosemide 20MG tablet PO SCH (08:05)
[2024-06-14] MEDS ORDERED: iron sucrose complex injection 100 MG in normal saline 100ml IV soln 100 ML IV SCH (08:16)
[2024-06-14 08:28] VITALS: PULSE 84; RESP 16; O2SAT 96
[2024-06-14 08:35] VITALS: PULSE 78; RESP 18
[2024-06-14] MEDS: iron sucrose complex injection 100 MG in normal saline 100ml IV soln 100 ML IV SCH (09:44)
[2024-06-14 11:30] VITALS: BP 103/60; PULSE 81; RESP 18; TEMP 98.3; O2SAT 98
[2024-06-14] MEDS ORDERED: ATOR20TA66 PO (13:11)
[2024-06-14] MEDS ORDERED: atorvastatin 20mg tablet PO SCH (21:00)
[2024-06-15] MEDS ORDERED: ALBU18HF2 IH (18:31)
[2024-06-17] MEDS ORDERED: folic acid 1mg tablet PO SCH (08:00)
[2024-06-17] MEDS ORDERED: thiamine 100mg tablet PO SCH (08:00)
== END 2024-06-14 14:25 | disposition home or self-care (01) | DRG 64 ==
LOC: ER 18:25 → ED HOLD 21:50 → PCU 3S 06-13 17:13 → ORTHO 4S 06-14 12:12
PROVIDERS: ADMIT Internal Medicine Critical Care Medicine; ATTEND Family Medicine
DX: I63.9 Cerebral infarction, unspecified (principal); G93.41 Metabolic encephalopathy; N17.0 Acute kidney failure with tubular necrosis; I50.30 Unspecified diastolic (congestive) heart failure; G45.4 Transient global amnesia; E03.9 Hypothyroidism, unspecified; J44.9 Chronic obstructive pulmonary disease, unspecified; I11.0 Hypertensive heart disease with heart failure; F32.A Depression, unspecified; F41.9 Anxiety disorder, unspecified; E78.5 Hyperlipidemia, unspecified; I48.91 Unspecified atrial fibrillation; Z88.0 Allergy status to penicillin; Z79.82 Long term (current) use of aspirin; Z79.899 Other long term (current) drug therapy; Z95.0 Presence of cardiac pacemaker
CPT/HCPCS: 36415; 70450; 71045; 80048; 80053; 80061; 80305; 81003; 82570; 82728; 82948; 83036; 83540; 83550; 83735; 83880; 83935; 84300; 84443; 84484; 85007; 85025; 87081; 92508; 92616; 93005; 93306; 94640; 94760; 97110; 97116; 97162; 99285; G0378; J1756; J1940; J3411; J3490